=== PATIENT | male | born 1965 | race Caucasian/White ===

== ENCOUNTER 2016-05-23 13:20 | Emergency (ER) | payer OTHER ==
[~2016-05-23] VITALS: Ht 170.2 cm; Wt 95.7 kg
[2016-05-23 14:26] LABS: EOSINOPHIL (%) 0 % (0-5); HEMATOCRIT 45.5 % (38.0-50.0); IMMATURE GRANULOCYTE (%) 0.3 % (0.0-0.7); IMMATURE GRANULOCYTE COUNT 0.4 K/uL; LYMPHOCYTE COUNT 0.8 K/uL (1.0-2.8); MCH 30.4 PG (29.0-34.0); MCHC 36.3 G/DL (30.0-36.0); MCV 83.8 FL (86-99); MONOCYTE (%) 7.5 % (3-12); MONOCYTE COUNT 0.9 K/uL (0-0.8); NEUTROPHIL (%) 85.1 % (45-76); NEUTROPHIL COUNT 9.8 K/uL (1.8-6.4); PLATELET COUNT 229 K/uL (156-360); RBC DIS.WIDTH-CV 12.9 % (11.8-14.6); RED BLOOD COUNT 5.43 M/uL (4.00-5.50); WHITE BLOOD COUNT 11.6 K/uL (4.1-10.2)
[2016-05-23 14:41] LABS: CHLORIDE 98 mEq/L (99-109); POTASSIUM 4.1 mEq/L (3.7-5.4); SODIUM 137 mEq/L (136-147)
[2016-05-23 14:43] LABS: GLUCOSE 124 mg/dL (70-99)
[2016-05-23 14:44] LABS: ANION GAP 13 MEQ/L (2-14)
[2016-05-23 14:45] LABS: TOTAL BILIRUBIN 0.9 mg/dL (0.0-1.0)
[2016-05-23 14:47] LABS: ALKALINE PHOSPHATASE 74 IU/L (3-129); GFR ESTIMATE (CALCULATED) > 59 mL/min/
[2016-05-23 14:48] LABS: UREA NITROGEN (BUN) 20 mg/dL (9-23)
[2016-05-23 14:50] LABS: LIPASE 5 U/L (1.0-51.0)
[2016-05-23 20:00] VITALS: BP 120/100
== END 2016-05-23 20:45 | disposition short-term general hospital (02) ==
LOC: EME → EDBD 13:20 → EME 13:20
PROVIDERS: Emergency Medicine
PROC: 0D9670Z Drainage of Stomach with Drainage Device, Via Natural or Artificial Opening (ICD-10-PCS; principal; 2016-05-23)
DX: K56.60 Unspecified intestinal obstruction (principal); R10.9 Unspecified abdominal pain; I10 Essential (primary) hypertension
CPT/HCPCS: 74177; 80053; 81003; 83690; 85025; 99281; 99285; J1170; J2270; J2405; J2765; J7030

== ENCOUNTER 2017-04-03 13:57 | Emergency (ER) | payer OTHER ==
[~2017-04-03] VITALS: Ht 170.2 cm; Wt 96.6 kg
[2017-04-03 14:50] LABS: EOSINOPHIL (%) 0.2 % (0-5); HEMATOCRIT 44.7 % (38.0-50.0); IMMATURE GRANULOCYTE (%) 0.4 % (0.0-0.7); IMMATURE GRANULOCYTE COUNT 0.1 K/uL; INSTRUMENT ABS NEUTROPHIL CT 10.7 K/uL; LYMPHOCYTE COUNT 0.6 K/uL (1.0-2.8); MCH 30.8 PG (29.0-34.0); MCHC 35.6 G/DL (30.0-36.0); MCV 86.5 FL (86-99); MEAN PLAT.VOLUME 10.5 uM^3 (9.0-12.4); NEUTROPHIL (%) 86.1 % (45-76); NEUTROPHIL COUNT 10.7 K/uL (1.8-6.4); PLATELET COUNT 223 K/uL (156-360); RBC DIS.WIDTH-CV 12.5 % (11.8-14.6); RBC DIS.WIDTH-SD 39.5 % (39-53); RED BLOOD COUNT 5.17 M/uL (4.00-5.50); WHITE BLOOD COUNT 12.4 K/uL (4.1-10.2)
[2017-04-03 14:59] LABS: CHLORIDE 102 mEq/L (99-109); POTASSIUM 4.4 mEq/L (3.7-5.4); SODIUM 141 mEq/L (136-147)
[2017-04-03 15:01] LABS: GLUCOSE 125 mg/dL (70-99)
[2017-04-03 15:02] LABS: ANION GAP 12 MEQ/L (2-14)
[2017-04-03 15:03] LABS: TOTAL BILIRUBIN 1.1 mg/dL (0.0-1.0)
[2017-04-03 15:04] LABS: ALKALINE PHOSPHATASE 69 IU/L (3-129)
[2017-04-03 15:05] LABS: GFR ESTIMATE (CALCULATED) > 59 mL/min/
[2017-04-03 15:06] LABS: UREA NITROGEN (BUN) 18 mg/dL (9-23)
[2017-04-03 15:08] LABS: LIPASE 8 U/L (1.0-51.0)
[2017-04-03 19:30] VITALS: BP 132/89
== END 2017-04-03 19:35 | disposition short-term general hospital (02) ==
LOC: EME 13:57
PROVIDERS: Emergency Medicine
DX: K56.609 Unspecified intestinal obstruction, unspecified as to partial versus complete obstruction (principal); I10 Essential (primary) hypertension; K21.9 Gastro-esophageal reflux disease without esophagitis; F32.9 Major depressive disorder, single episode, unspecified; Z87.891 Personal history of nicotine dependence
CPT/HCPCS: 74177; 80053; 81003; 83690; 85025; 94640; 99281; 99285; J2270; J2405; J3010; J7030